=== PATIENT | male | born 1985 | race Two or more races ===

== ENCOUNTER 2018-04-22 17:35 | Emergency (ER) | payer OTHER ==
[~2018-04-22] VITALS: Ht 193 cm; Wt 90.7 kg
[2018-04-22 17:41] VITALS: BP 130/77
[2018-04-22] MEDS ORDERED: NORCO 5-325 TA1 EACH ORAL (17:44)
--- NOTE | 2018-04-22 17:51 | NUR ---
ED Nurse Note: Pt came in due to coughing with green phlegm for 2-3 months and bilateral foot pain after falling down from the second floor of a building. Pt was already seen in the ER for that incident and came in with crutches. Pt is AAO x4, ambulates with crutches with non labored breathing.
--- NOTE | 2018-04-22 18:34 | NUR ---
ED Nurse Note: Called radiology to ff up with CXR.
--- NOTE | 2018-04-22 18:37 | NUR ---
ED Nurse Note: Pt is asking for a non narcotic pain medication. Pieter CANALES notified. Waiting for new orders.
--- NOTE | 2018-04-22 19:02 | NUR ---
HAND-OFF: Report given to Lucia DAS.
--- NOTE | 2018-04-22 19:10 | NUR ---
ED Nurse Note: RT AT BEDSIDE, PT RECEIVING BREATHING TREATMENT
[2018-04-22] MEDS ORDERED: Ipratropium 0.02% Inh Soln 2.5ml UD HHN ONE (19:15)
[2018-04-22] MEDS ORDERED: Albuterol ud Inhalation HHN ONE (19:15)
--- NOTE | 2018-04-22 19:39 | NUR ---
ED Nurse Note: breathing treatment completed
[2018-04-22] MEDS ORDERED: PROMETHAZINE-D118 ML ORAL (20:08)
[2018-04-22] MEDS ORDERED: PROAIR HFA8.5 GM INH (20:08)
[2018-04-22 20:10] VITALS: BP 127/69
--- NOTE | 2018-04-22 20:10 | NUR ---
ER DISCHARGE NOTE: Patient is cleared to be discharged per ERMD, pt is aox4, on room air, with stable vital signs. pt was given dc and prescription instructions, pt was able to verbalize understanding, pt id band removed. pt is able to ambulate with steady gait on his crutches. pt took all belongings.
--- NOTE | 2018-04-22 20:55 | Emergency Room Report ---
History of Present Illness General Chief Complaint: Upper Respiratory Illness Source: Patient Present Illness HPI The patient is a 33-year-old male presenting for cough for 2 months. He denies any known sick contacts or recent travel. He denies fever, chills, night sweats , hemoptysis. He denies history of asthma or any other lung condition. Is also complaining of foot pain. He states that he jumped from a second-story building and landed on his feet. He was seen at another emergency department for this 3 days prior and x-rays were done but were unremarkable. He states that pain is a 5 out of 10 dull ache and is worse with walking. He denies any other symptoms Allergies: Coded Allergies: No Known Allergies (Unverified , 04/22/18) Patient History Past Medical History: see triage record Pertinent Family History: none Reviewed Nursing Documentation: PMH: Agreed; PSxH: Agreed Nursing Documentation-PM Past Medical History: No Stated History Review of Systems All Other Systems: negative except mentioned in HPI Physical Exam Vital Signs Date Time Temp Pulse Resp B/P (MAP) Pulse Ox O2 Delivery O2 Flow Rate FiO2 04/22/18 17:41 98.2 78 16 130/77 98 Room Air 04/22/18 19:19 21 Sp02 EP Interpretation: reviewed, normal General Appearance: no apparent distress, alert, GCS 15, non-toxic Head: normocephalic, atraumatic Eyes: bilateral eye normal inspection, bilateral eye PERRL ENT: hearing grossly normal, normal pharynx, no angioedema, normal voice, uvula midline Neck: full range of motion, supple/symm/no masses Respiratory: chest non-tender, normal breath sounds, speaking full sentences, wheezing Cardiovascular #1: regular rate, rhythm, no edema Musculoskeletal: back normal, gait/station normal, normal range of motion, non- tender Neurologic: alert, oriented x3, responsive, motor strength/tone normal, sensory intact, speech normal Psychiatric: judgement/insight normal, memory normal, mood/affect normal, no suicidal/homicidal ideation Skin: normal color, no rash, warm/dry, well hydrated Lymphatic: no adenopathy Medical Decision Making PA Attestation Dr. Maciel is my supervising physician. Patient management was discussed with my supervising physician Diagnostic Impression: Primary Impression: Bronchitis ER Course The patient is a 33-year-old male presenting for cough for 2 months. Differential diagnosis include but not limited to pharyngitis, sinusitis, AOM, bronchitis, PNA PE: afebrile. No tachypnea. No apparent distress. No TTP over maxillary or frontal sinuses. Lungs: diffuse wheezing. No accessory muscle use. No resp distress Heart: RRR, no abnormal heart sounds Ears: external auditory canal clear. Non erythematous. Bilat TM intact. Cone of light present bilat. No bulging of TM. No serous fluid seen. no nasal D/C Nor cervical lymphad No tonsillar exudate. Uvula midline.Oropharynx non erythematous The patient will be discharged home with a prescription for The patient is given a breathing treatment and feels significantly better. Lung sounds have improved He is discharged home with prescription for albuterol and cough meds. He will follow-up with primary doctor ER precautions given Chest X-Ray Diagnostic Results Chest X-Ray Diagnostic Results : Chest X-Ray Ordered: Yes # of Views/Limited/Complete: 1 View, Limited Indication: Other - cough EP Interpretation: Yes PARKER Xray: Interpretation reviewed, by supervising MD, and agrees with findings. Interpretation: no consolidation, no effusion, no pneumothorax, no acute cardiopulmonary disease Impression: No acute disease Electronically Signed by: Pieter Valdivia PA-C Last Vital Signs Date Time Temp Pulse Resp B/P (MAP) Pulse Ox O2 Delivery O2 Flow Rate FiO2 04/22/18 20:10 98.2 88 18 127/69 98 Room Air 21 Status: improved Disposition: HOME, SELF-CARE Condition: Improved Scripts Albuterol Sulfate* (PROAIR HFA*) 8.5 Gm Hfa.aer.ad 2 PUFFS INH Q6H, #8.5 GM 0 Refills Prov: TERZIAN,PIETER P.A. 04/22/18 D-Methorphan Hb/Prometh Hcl* (PROMETHAZINE-DM SYRUP*) 118 Ml Syrup 5 ML ORAL Q6H PRN for For Cough, #118 ML 0 Refills Prov: TERZIAN,PIETER P.A. 04/22/18 Patient Instructions: Acute Bronchitis Additional Instructions: I discussed my findings with the patient. All questions and concerns have been answered. Treatment and medication compliance have been addressed. I advised the patient that they need to follow up with PMD in 3-5 days. Return to ED if symptoms worsen, new symptoms arise, or if needed for any reason. Patient verbalized understanding of discharge instructions. PIETER VALDIVIA Apr 22, 2018 20:55
--- NOTE | 2018-04-23 12:00 | Diagnostic Imaging Report ---
Indication: Cough Technique: One view of the chest Comparison: none Findings: Lungs and pleural spaces are clear. Heart size is normal Impression: No acute process
== END 2018-04-22 20:10 | disposition home or self-care (01) ==
LOC: EMR 18:14
DX: J40 Bronchitis, not specified as acute or chronic (principal); M79.672 Pain in left foot; M79.671 Pain in right foot
CPT/HCPCS: 71045; 94640; 94664; 99284